=== PATIENT | female | born 1940 | race Caucasian/White ===

== ENCOUNTER 2018-03-15 19:49 | Emergency (ER) | payer MEDICARE, BC ==
--- NOTE | 2018-03-15 20:33 | EDM.PDOC ---
ED HPI GENERAL MEDICAL PROBLEM - General Chief Complaint: General Stated Complaint: MED VIA [facility] Time Seen by Provider: 03/15/18 20:17 Source of Information: Reports: Patient, Family, RN Notes Reviewed History Limitations: Reports: No Limitations - History of Present Illness INITIAL COMMENTS - FREE TEXT/NARRATIVE: 77-year-old female presents to the emergency department today with complaint of red swollen leg. She is postop day 10 coronary artery bypass grafting done in [facility] over the last couple days she's noticed increased redness swelling and pain in her left leg where a graft was taken from. She denies any shortness of breath or chest pain feels her breathing has improved, no fevers Left Leg Pain Score (Numeric/FACES): 2 - Related Data Allergies Allergy/AdvReac Type Severity Reaction Status Date / Time morphine Allergy Severe Anaphylactic Verified 03/15/18 20:01 Shock ciprofloxacin Allergy Confusion Verified 03/15/18 20:01 Sulfa (Sulfonamide Allergy Itching Verified 03/15/18 20:01 Antibiotics) Home Meds: Home Meds Furosemide [Lasix] 40 mg PO BID 05/09/15 [History] Acetaminophen [Acetaminophen Extra Strength] 1,000 mg PO TID PRN 03/15/18 [ History] Amiodarone HCl [Pacerone] 200 mg PO BID 03/15/18 [History] Apixaban [Eliquis] 5 mg PO BID 03/15/18 [History] Aspirin [Halfprin] 81 mg PO DAILY 03/15/18 [History] Carvedilol 12.5 mg PO BID 03/15/18 [History] Insulin Glarg,Human.Rec.Analog [Lantus Solostar] 15 units SQ DAILY 03/15/18 [ History] Lisinopril 2.5 mg PO DAILY 03/15/18 [History] Pantoprazole Sodium [Protonix] 20 mg PO DAILY 03/15/18 [History] Potassium Chloride 2 tab PO BID 03/15/18 [History] Sennosides/Docusate Sodium [Senna-Time S Tablet] 1 tab PO BID 03/15/18 [History] atorvaSTATin Calcium [Atorvastatin Calcium] 40 mg PO DAILY 03/15/18 [History] traMADol [Ultram] 50 mg PO Q4H PRN 03/15/18 [History] Past Medical History HEENT History: Reports: Cataract, Hard of Hearing Cardiovascular History: Reports: Aneurysm, Bypass, CAD, High Cholesterol, Hypertension Respiratory History: Reports: Sleep Apnea Gastrointestinal History: Reports: Diverticulosis, GERD, PUD Other Gastrointestinal History: ulcers Genitourinary History: Reports: Urinary Incontinence, UTI, Recurrent SCREENING SPECIALIST History: Reports: Other (See Below) Other SCREENING SPECIALIST History: uterine cancer Musculoskeletal History: Reports: Arthritis, Back Pain, Chronic Other Musculoskeletal History: back arthritis Neurological History: Reports: CVA, Neuropathy, Diabetic, Other (See Below) Other Neuro History: left side weakness Endocrine/Metabolic History: Reports: Diabetes, Type II, Obesity/BMI 30+ Hematologic History: Reports: Anticoagulation Therapy Oncologic (Cancer) History: Reports: Uterine Dermatologic History: Reports: Eczema - Infectious Disease History Infectious Disease History: Reports: C-Difficile, Chicken Pox, Measles, MRSA, Mumps, Shingles, Other (See Below) Other Infectious Disease History: MRSA in nasal swab - Past Surgical History HEENT Surgical History: Reports: Cataract Surgery Cardiovascular Surgical History: Reports: Aneurysm, Coronary Artery Bypass, Coronary Artery Stent Other Cardiovascular Surgeries/Procedures: stent 10 years GI Surgical History: Reports: Cholecystectomy, Colonoscopy, EGD Female Surgical History: Reports: Hysterectomy, Salpingo-Oophorectomy Other Oncologic Surgeries/Procedures: hyst Social & Family History - Tobacco Use Smoking Status *Q: Never Smoker - Caffeine Use Caffeine Use: Reports: Coffee - Recreational Drug Use Recreational Drug Use: No ED ROS GENERAL - Review of Systems Review Of Systems: See Below Constitutional: Reports: No Symptoms Respiratory: Reports: No Symptoms Cardiovascular: Reports: No Symptoms GI/Abdominal: Reports: No Symptoms : Reports: No Symptoms Skin: Reports: Pallor, Rash, Erythema, Wound ED EXAM, GENERAL - Physical Exam Exam: See Below Free Text/Narrative:: Examination of the left leg surgical wounds clean dry and intact there is an erythematous margin that encompasses 40% of the thigh it is warm to the touch and tender to the touch Exam Limited By: No Limitations General Appearance: Alert, WD/WN, No Apparent Distress Respiratory/Chest: No Respiratory Distress, Lungs Clear, Normal Breath Sounds, No Accessory Muscle Use Cardiovascular: Regular Rate, Rhythm, No Murmur Course - Vital Signs Last Recorded V/S: Last Vital Signs Temp 99.5 F 03/15/18 20:05 Pulse 80 03/15/18 20:05 Resp 16 03/15/18 20:05 BP 119/52 L 03/15/18 20:05 Pulse Ox 96 03/15/18 20:05 - Orders/Labs/Meds Labs: Laboratory Tests 03/15/18 03/15/18 03/15/18 Range/Units 20:21 20:21 20:21 WBC 24.3 H (4.5-11.0) K/uL RBC 3.22 L (3.30-5.50) M/uL Hgb 9.8 L (12.0-15.0) g/dL Hct 29.9 L (36.0-48.0) % MCV 93 (80-98) fL MCH 30 (27-31) pg MCHC 33 (32-36) % Plt Count 278 (150-400) K/uL Neut % (Auto) 81 H (36-66) % Lymph % (Auto) 14 L (24-44) % Mot[place] % (Auto) 5 (2-6) % Eos % (Auto) 1 L (2-4) % Baso % (Auto) 0 (0-1) % Sodium (140-148) mmol/L Potassium (3.6-5.2) mmol/L Chloride (100-108) mmol/L Carbon Dioxide (21-32) mmol/L Anion Gap (5.0-14.0) mmol/L BUN (7-18) mg/dL Creatinine (0.6-1.0) mg/dL Est Cr Clr Drug Dosing Estimated GFR (MDRD) (>60) Glucose (74-106) mg/dL Lactic Acid 1.1 (0.4-2.0) mmol/L Calcium (8.5-10.1) mg/dL C-Reactive Protein 8.77 H (0.0-0.3) mg/dL 03/15/18 Range/Units 20:21 WBC (4.5-11.0) K/uL RBC (3.30-5.50) M/uL Hgb (12.0-15.0) g/dL Hct (36.0-48.0) % MCV (80-98) fL MCH (27-31) pg MCHC (32-36) % Plt Count (150-400) K/uL Neut % (Auto) (36-66) % Lymph % (Auto) (24-44) % [place] % (Auto) (2-6) % Eos % (Auto) (2-4) % Baso % (Auto) (0-1) % Sodium 133 L (140-148) mmol/L Potassium 4.6 (3.6-5.2) mmol/L Chloride 98 L (100-108) mmol/L Carbon Dioxide 25 (21-32) mmol/L Anion Gap 14.6 H (5.0-14.0) mmol/L BUN 22 H (7-18) mg/dL Creatinine 2.0 H (0.6-1.0) mg/dL Est Cr Clr Drug Dosing TNP Estimated GFR (MDRD) 24 L (>60) Glucose 238 H (74-106) mg/dL Lactic Acid (0.4-2.0) mmol/L Calcium 9.2 (8.5-10.1) mg/dL C-Reactive Protein (0.0-0.3) mg/dL Departure - Departure Time of Disposition: 21:21 Disposition: DC/Tfer to [facility] Condition: Fair Clinical Impression: Wound cellulitis - Discharge Information Referrals: PCP,None [Primary Care Provider] - Forms: ED Department Discharge Additional Instructions: Take full course of antibiotics, please follow-up with the prison provider in the next 3-5 days for reevaluation call return to the emergency department worsening of symptoms - Assessment/Plan Plan: Assessment Acuity = acute Site and laterality = wound cellulitis complicated with the patient postop CABG and history of MRSA Etiology = suspicious for bacterial cause Manifestations = none Location of injury = Home Lab values = WBC elevated at 24.3 consistent leukocytosis, hemoglobin low 9.8 consistent normochromic anemia creatinine elevated 2.0 consistent chronic renal failure stage GIV lactic acid normal at 1.1 CRP elevated at 8.77 Plan Prescription written for clindamycin 300 mg 4 times a day 10 days however follow-up with the prison provider in 3-5 days for reevaluation This note was dictated using [employer] recognition software please call with any questions on syntax or grammar.
[2018-03-15 23:19] VITALS: BP 140/54
== END 2018-03-15 21:47 ==
LOC: JP.ED 19:49
DX: I97.89 Other postprocedural complications and disorders of the circulatory system, not elsewhere classified (principal); L03.116 Cellulitis of left lower limb; I10 Essential (primary) hypertension; E78.00 Pure hypercholesterolemia, unspecified; K21.9 Gastro-esophageal reflux disease without esophagitis; E11.9 Type 2 diabetes mellitus without complications; Z79.01 Long term (current) use of anticoagulants; Z79.899 Other long term (current) drug therapy; Z79.82 Long term (current) use of aspirin; Z79.4 Long term (current) use of insulin; Z88.1 Allergy status to other antibiotic agents; Z88.5 Allergy status to narcotic agent; Z88.2 Allergy status to sulfonamides
CPT/HCPCS: 36415; 80048; 83605; 85025; 86140; 99285

== ENCOUNTER 2019-01-12 17:12 | Emergency (ER) | payer BC, MEDICARE ==
[2019-01-12] MEDS ORDERED: Cyclobenzaprine 10 MG Tab PO ONE (18:26)
[2019-01-12] MEDS ORDERED: Ketorolac 30 MG/ML SDV IM ONE (18:26)
--- NOTE | 2019-01-12 18:29 | EDM.PDOC ---
ED HPI GENERAL MEDICAL PROBLEM - General Chief Complaint: Back Pain or Injury Time Seen by Provider: 01/12/19 18:22 Source of Information: Reports: Patient, RN Notes Reviewed History Limitations: Reports: No Limitations - History of Present Illness INITIAL COMMENTS - FREE TEXT/NARRATIVE: 78-year-old female presents to emergency department today complaint of low back pain predominantly on the left she states she did do some moving of bags yesterday had no back problems yesterday pain is quite severe today with pain shooting down into her legs no loss of bowel or bladder fevers, family is concerned about his dvt lower extremities only Left Lower Pain Score (Numeric/FACES): 3 - Related Data Allergies Allergy/AdvReac Type Severity Reaction Status Date / Time morphine Allergy Severe Anaphylactic Verified 01/12/19 17:57 Shock ciprofloxacin Allergy Confusion Verified 01/12/19 17:57 Sulfa (Sulfonamide Allergy Itching Verified 01/12/19 17:57 Antibiotics) Home Meds: Home Meds Furosemide [Lasix] 40 mg PO BID 05/09/15 [History] Acetaminophen [Acetaminophen Extra Strength] 1,000 mg PO TID PRN 03/15/18 [ History] Aspirin [Halfprin] 81 mg PO DAILY 03/15/18 [History] Carvedilol 12.5 mg PO BID 03/15/18 [History] Pantoprazole Sodium [Protonix] 20 mg PO DAILY 03/15/18 [History] Lisinopril 10 mg PO BID 01/12/19 [History] Potassium Chloride 10 meq PO BID 01/12/19 [History] metFORMIN HCl [Metformin HCl] 850 mg PO BID 01/12/19 [History] Past Medical History HEENT History: Reports: Cataract, Hard of Hearing Cardiovascular History: Reports: Aneurysm, Bypass, CAD, High Cholesterol, Hypertension Respiratory History: Reports: Sleep Apnea Gastrointestinal History: Reports: Diverticulosis, GERD, PUD Other Gastrointestinal History: ulcers Genitourinary History: Reports: Urinary Incontinence, UTI, Recurrent SPECIALIZED DEVELOPER History: Reports: Other (See Below) Other SPECIALIZED DEVELOPER History: uterine cancer Musculoskeletal History: Reports: Arthritis, Back Pain, Chronic Other Musculoskeletal History: back arthritis Neurological History: Reports: CVA, Neuropathy, Diabetic, Other (See Below) Other Neuro History: left side weakness Endocrine/Metabolic History: Reports: Diabetes, Type II, Obesity/BMI 30+ Hematologic History: Reports: Anticoagulation Therapy Oncologic (Cancer) History: Reports: Uterine Dermatologic History: Reports: Eczema - Infectious Disease History Infectious Disease History: Reports: C-Difficile, Chicken Pox, Measles, MRSA, Mumps, Shingles, Other (See Below) Other Infectious Disease History: MRSA in nasal swab - Past Surgical History HEENT Surgical History: Reports: Cataract Surgery Cardiovascular Surgical History: Reports: Aneurysm, Coronary Artery Bypass, Coronary Artery Stent Other Cardiovascular Surgeries/Procedures: stent 10 years GI Surgical History: Reports: Cholecystectomy, Colonoscopy, EGD Female Surgical History: Reports: Hysterectomy, Salpingo-Oophorectomy Other Oncologic Surgeries/Procedures: hyst Social & Family History - Tobacco Use Smoking Status *Q: Never Smoker - Caffeine Use Caffeine Use: Reports: Coffee - Recreational Drug Use Recreational Drug Use: No ED ROS GENERAL - Review of Systems Review Of Systems: See Below Constitutional: Reports: No Symptoms GI/Abdominal: Reports: No Symptoms Musculoskeletal: Reports: Neck Pain Neurological: Reports: Tingling ED EXAM,LOWER BACK PAIN/INJURY - Physical Exam Exam: See Below Exam Limited By: No Limitations General Appearance: Alert, WD/WN, No Apparent Distress Respiratory/Chest: No Respiratory Distress Back Exam: Normal Inspection, Decreased Range of Motion, Muscle Spasm, Paraspinal Tenderness. No: CVA Tenderness (R), CVA Tenderness (L), Vertebral Tenderness Neurological: No: Straight Leg Raise (L), Straight Leg Raise (R) Course - Vital Signs Last Recorded V/S: Last Vital Signs Temp 100.0 F 01/12/19 18:11 Pulse 94 01/12/19 18:37 Resp 16 01/12/19 18:37 BP 176/71 H 01/12/19 18:37 Pulse Ox 95 01/12/19 18:37 - Orders/Labs/Meds Labs: Laboratory Tests 01/12/19 01/12/19 Range/Units 18:37 18:37 D-Dimer, Quantitative 211 (0.0-400.0) ng/mL Sodium 136 L (140-148) mmol/L Potassium 4.4 (3.6-5.2) mmol/L Chloride 101 (100-108) mmol/L Carbon Dioxide 27 (21-32) mmol/L Anion Gap 12.4 (5.0-14.0) mmol/L BUN 39 H D (7-18) mg/dL Creatinine 1.7 H (0.6-1.0) mg/dL Est Cr Clr Drug Dosing 20.87 mL/min Estimated GFR (MDRD) 29 L (>60) Glucose 200 H (74-106) mg/dL Calcium 9.4 (8.5-10.1) mg/dL Meds: Medications Discontinued Medications Generic Name Dose Route Start Last Admin Trade Name Dee PRN Reason Stop Dose Admin Cyclobenzaprine HCl 10 mg 01/12/19 18:26 01/12/19 18:32 Flexeril PO 01/12/19 18:27 10 mg ONETIME ONE Administration Ketorolac Tromethamine 30 mg 01/12/19 18:26 01/12/19 18:32 Toradol IM 01/12/19 18:27 30 mg ONETIME ONE Administration Departure - Departure Time of Disposition: 19:56 Disposition: Home, Self-Care 01 Condition: Fair Clinical Impression: Low back pain Qualifiers: Chronicity: acute Back pain laterality: left Sciatica presence: without sciatica Qualified Code(s): M54.5 - Low back pain - Discharge Information Referrals: Eugene Cordova MD [Primary Care Provider] - Forms: ED Department Discharge Additional Instructions: Use the Ultram as needed for pain control, Please followup with your primary care provider in 3-5 days if not better, please call return to the emergency department with worsening of symptoms. - Assessment/Plan Plan: Assessment Acuity = acute Site and laterality = low back pain left side Etiology = secondary lifting injury Manifestations = none Location of injury = Home Lab values = d-dimer was negative, creatinine elevated 1.7 consistent chronic renal failure state G4 Plan She good relief with Toradol and Flexeril combination, plan is discharge home with tramadol 50 mg by mouth every 6 hours when necessary total #15 follow-up primary care in 3-5 days if not better This note was dictated using [employer] voice recognition software please call with any questions on syntax or grammar.
[2019-01-12 18:37] VITALS: BP 176/71
== END 2019-01-12 20:27 | disposition home or self-care (01) ==
LOC: JP.ED 17:12
DX: M54.5 Low back pain (principal); I25.10 Atherosclerotic heart disease of native coronary artery without angina pectoris; E78.00 Pure hypercholesterolemia, unspecified; Z79.01 Long term (current) use of anticoagulants; E66.9 Obesity, unspecified; E11.40 Type 2 diabetes mellitus with diabetic neuropathy, unspecified; Z95.1 Presence of aortocoronary bypass graft; Z88.8 Allergy status to other drugs, medicaments and biological substances; Z88.2 Allergy status to sulfonamides; Z88.1 Allergy status to other antibiotic agents; Z79.899 Other long term (current) drug therapy; Z79.82 Long term (current) use of aspirin; Z79.84 Long term (current) use of oral hypoglycemic drugs; Z68.38 Body mass index [BMI] 38.0-38.9, adult
CPT/HCPCS: 36415; 80048; 85379; 96372; 99283; A9270; J1885

== ENCOUNTER 2019-11-21 15:33 | Emergency (ER) | payer BC, MEDICARE, OTHER ==
[2019-11-21 15:49] VITALS: PULSE 72
[2019-11-21 15:55] VITALS: BP 166/71
--- NOTE | 2019-11-21 16:56 | EDM.PDOC ---
ED HPI GENERAL MEDICAL PROBLEM - General Chief Complaint: Skin Complaint Stated Complaint: BACKACHE Time Seen by Provider: 11/21/19 16:56 Source of Information: Reports: Patient History Limitations: Reports: No Limitations - History of Present Illness INITIAL COMMENTS - FREE TEXT/NARRATIVE: pt arrived with a feeling of firmness and tenderness at the waist level on the left side. She has been busy helping her daughter move. Onset: Today, Other (pt noted the swelling today. ) Duration: Day(s): Location: Reports: Back Associated Symptoms: Reports: No Other Symptoms - Related Data Allergies Allergy/AdvReac Type Severity Reaction Status Date / Time morphine Allergy Severe Anaphylactic Verified 11/21/19 16:16 Shock ciprofloxacin Allergy Confusion Verified 11/21/19 16:16 Sulfa (Sulfonamide Allergy Itching Verified 11/21/19 16:16 Antibiotics) Home Meds: Home Meds Furosemide [Lasix] 40 mg PO BID 05/09/15 [History] Aspirin [Halfprin] 81 mg PO DAILY 03/15/18 [History] Pantoprazole Sodium [Protonix] 20 mg PO DAILY 03/15/18 [History] carvediloL [Carvedilol] 12.5 mg PO BID 03/15/18 [History] Lisinopril 10 mg PO BID 01/12/19 [History] Potassium Chloride 10 meq PO BID 01/12/19 [History] metFORMIN HCl [Metformin HCl] 850 mg PO BID 01/12/19 [History] Past Medical History HEENT History: Reports: Cataract, Hard of Hearing Cardiovascular History: Reports: Aneurysm, Bypass, CAD, High Cholesterol, Hypertension Respiratory History: Reports: Sleep Apnea Gastrointestinal History: Reports: Diverticulosis, GERD, PUD Other Gastrointestinal History: ulcers Genitourinary History: Reports: Urinary Incontinence, UTI, Recurrent 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: Reports: Other (See Below) Other 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: uterine cancer Musculoskeletal History: Reports: Arthritis, Back Pain, Chronic Other Musculoskeletal History: back arthritis Neurological History: Reports: CVA, Neuropathy, Diabetic, Other (See Below) Other Neuro History: left side weakness Endocrine/Metabolic History: Reports: Diabetes, Type II, Obesity/BMI 30+ Hematologic History: Reports: Anticoagulation Therapy Oncologic (Cancer) History: Reports: Uterine Dermatologic History: Reports: Eczema - Infectious Disease History Infectious Disease History: Reports: C-Difficile, Chicken Pox, Measles, MRSA, Mumps, Shingles, Other (See Below) Other Infectious Disease History: MRSA in nasal swab - Past Surgical History HEENT Surgical History: Reports: Cataract Surgery Cardiovascular Surgical History: Reports: Aneurysm, Coronary Artery Bypass, Coronary Artery Stent Other Cardiovascular Surgeries/Procedures: stent 10 years GI Surgical History: Reports: Cholecystectomy, Colonoscopy, EGD Female Surgical History: Reports: Hysterectomy, Salpingo-Oophorectomy Other Oncologic Surgeries/Procedures: hyst Social & Family History - Tobacco Use Smoking Status *Q: Never Smoker - Caffeine Use Caffeine Use: Reports: Coffee ED ROS GENERAL - Review of Systems Review Of Systems: See Below Constitutional: Reports: No Symptoms HEENT: Reports: No Symptoms Respiratory: Reports: No Symptoms Cardiovascular: Reports: No Symptoms Endocrine: Reports: No Symptoms GI/Abdominal: Reports: No Symptoms : Reports: No Symptoms Musculoskeletal: Reports: Other (pain and firmness in the let cva area along the back ) ED EXAM, SKIN/RASH Exam: See Below Text/Narrative:: pt has tenderness in the left cva area she feels like this is new. Exam Limited By: No Limitations General Appearance: Alert, Anxious Back Exam: CVA Tenderness (L), Other (pt feels like there is a firmness and this is slightly tender,. She has been helping her daughter move. ) Extremities: Normal Inspection Neurological: Alert, Oriented, Normal Cognition Course - Vital Signs Last Recorded V/S: Last Vital Signs Temp 36.1 C 11/21/19 16:26 Pulse 72 11/21/19 16:26 Resp 16 11/21/19 16:26 BP 166/71 H 11/21/19 16:26 Pulse Ox 98 11/21/19 16:26 - Orders/Labs/Meds Orders: Active Orders 24 hr Category Date Time Status Thoracic Spine 3V [CR] Stat Exams 11/21/19 16:55 Taken CULTURE URINE [RM] Stat Lab 11/21/19 18:00 Received Labs: Laboratory Tests 11/21/19 Range/Units 17:46 Urine Color Yellow (YELLOW) Urine Appearance Slightly cloudy A (CLEAR) Urine pH 6.0 (5.0-8.0) Ur Specific [place] 1.025 (1.008-1.030) Urine Protein Negative (NEGATIVE) mg/dL Urine Glucose (UA) Negative (NEGATIVE) mg/dL Urine Ketones Negative (NEGATIVE) mg/dL Urine Occult Blood Negative (NEGATIVE) Urine Nitrite Negative (NEGATIVE) Urine Bilirubin Negative (NEGATIVE) Urine Urobilinogen 0.2 (0.2-1.0) EU/dL Ur Leukocyte Esterase Trace H (NEGATIVE) Urine RBC Not seen (0-5) Urine WBC 10-20 H (0-5) Ur Epithelial Cells Many Amorphous Sediment Rare Urine Bacteria Many Urine Mucus Not seen - Re-Assessments/Exams Free Text/Narrative Re-Assessment/Exam: 11/21/19 17:40 xrays reveal a curvature to the left, she is also kyphotic. Departure - Departure Time of Disposition: 17:37 Disposition: Home, Self-Care 01 Condition: Fair Clinical Impression: Lumbar paraspinal muscle spasm, UTI (urinary tract infection) - Discharge Information Referrals: Eugene Cordova MD [Primary Care Provider] - Forms: ED Department Discharge Care Plan Goals: moist warm packs to the area, tylenol or motrin for pain cipro 500mg bid for 1 week for uti. q Sepsis Event Note - Evaluation Sepsis Screening Result: No Definite Risk - Focused Exam Vital Signs: Vital Signs Temp Pulse Resp BP Pulse Ox 11/21/19 16:26 36.1 C 72 16 166/71 H 98 11/21/19 15:47 36.1 C 72 16 166/71 H 98 Date Exam was Performed: 11/21/19 Time Exam was Performed: 18:02 - My Orders Last 24 Hours: My Active Orders 11/21/19 16:55 Thoracic Spine 3V [CR] Stat 11/21/19 18:00 CULTURE URINE [RM] Stat - Assessment/Plan Last 24 Hours: My Active Orders 11/21/19 16:55 Thoracic Spine 3V [CR] Stat 11/21/19 18:00 CULTURE URINE [RM] Stat
--- NOTE | 2019-11-22 10:49 | CR ---
Thoracic Spine 3V CLINICAL HISTORY: Lower thoracic pain FINDINGS: Patient has a high flow dextroscoliosis of the mid and lower thoracic spine. The lower thoracic vertebral levels are very poorly seen on the lateral images. No obvious significant compression deformity is identified. There is degenerative disc change with osteophytosis. The pedicles are unremarkable. 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
== END 2019-11-21 18:19 | disposition home or self-care (01) ==
LOC: JP.ED 15:33
DX: M62.830 Muscle spasm of back (principal); N39.0 Urinary tract infection, site not specified; M19.90 Unspecified osteoarthritis, unspecified site; Z79.82 Long term (current) use of aspirin; Z79.899 Other long term (current) drug therapy; K21.9 Gastro-esophageal reflux disease without esophagitis; I25.10 Atherosclerotic heart disease of native coronary artery without angina pectoris; I10 Essential (primary) hypertension; E11.40 Type 2 diabetes mellitus with diabetic neuropathy, unspecified; Z86.73 Personal history of transient ischemic attack (TIA), and cerebral infarction without residual deficits; E66.9 Obesity, unspecified; Z88.5 Allergy status to narcotic agent; Z88.1 Allergy status to other antibiotic agents; Z88.2 Allergy status to sulfonamides; Z68.38 Body mass index [BMI] 38.0-38.9, adult
CPT/HCPCS: 72072; 72072-26; 81001; 87086; 87088; 87186; 99283; 99283-25

== ENCOUNTER 2020-06-04 23:16 | Emergency (ER) | payer MEDICARE ==
[2020-06-04 23:59] VITALS: BP 159/51; PULSE 74
--- NOTE | 2020-06-05 00:30 | EDM.PDOC ---
ED HPI GENERAL MEDICAL PROBLEM - General Chief Complaint: Gastrointestinal Problem Stated Complaint: DIVERTICULITIS Time Seen by Provider: 06/05/20 00:24 Source of Information: Reports: Patient, RN Notes Reviewed History Limitations: Reports: No Limitations - History of Present Illness INITIAL COMMENTS - FREE TEXT/NARRATIVE: 80-year-old female presents emergency department a complaint of abdominal pain, she states pain is predominantly left lower quadrant she has had diverticular disease in the past she states this feels very similar to a flareup. Pain initiated about 3:00 this afternoon rated 5 out of 10 she still passing gas no fevers no nausea or vomiting abd pain Pain Score (Numeric/FACES): 5 - Related Data Allergies Allergy/AdvReac Type Severity Reaction Status Date / Time morphine Allergy Severe Anaphylactic Verified 06/04/20 23:54 Shock ciprofloxacin Allergy Confusion Verified 06/04/20 23:54 Sulfa (Sulfonamide Allergy Itching Verified 06/04/20 23:54 Antibiotics) Home Meds: Home Meds Furosemide [Lasix] 40 mg PO DAILY 05/09/15 [History] Aspirin [Halfprin] 81 mg PO DAILY 03/15/18 [History] Pantoprazole Sodium [Protonix] 20 mg PO DAILY 03/15/18 [History] carvediloL [Carvedilol] 12.5 mg PO BID 03/15/18 [History] Lisinopril 10 mg PO BID 01/12/19 [History] Potassium Chloride 10 meq PO BID 01/12/19 [History] metFORMIN HCl [Metformin HCl] 850 mg PO BID 01/12/19 [History] Latanoprost/Pf [Latanoprost 0.005% Eye Drop] 1 - 2 drop EYEBOTH BEDTIME 06/04/20 [History] Past Medical History HEENT History: Reports: Cataract, Glaucoma, Hard of Hearing Cardiovascular History: Reports: Aneurysm, Bypass, CAD, High Cholesterol, Hypertension Respiratory History: Reports: Sleep Apnea Gastrointestinal History: Reports: Diverticulosis, GERD, PUD Other Gastrointestinal History: ulcers Genitourinary History: Reports: Urinary Incontinence, UTI, Recurrent 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 (See Below) Other ASSOCIATE CIVIL ENGINEER History: uterine cancer Musculoskeletal History: Reports: Arthritis, Back Pain, Chronic Other Musculoskeletal History: back arthritis Neurological History: Reports: CVA, Neuropathy, Diabetic, Other (See Below) Other Neuro History: left side weakness Psychiatric History: Reports: Anxiety Endocrine/Metabolic History: Reports: Diabetes, Type II, Obesity/BMI 30+ Hematologic History: Reports: Anticoagulation Therapy Oncologic (Cancer) History: Reports: Uterine Dermatologic History: Reports: Eczema - Infectious Disease History Infectious Disease History: Reports: C-Difficile, Chicken Pox, Measles, MRSA, Mumps, Shingles, Other (See Below) Other Infectious Disease History: MRSA in nasal swab - Past Surgical History HEENT Surgical History: Reports: Cataract Surgery Cardiovascular Surgical History: Reports: Aneurysm, Coronary Artery Bypass, Coronary Artery Stent Other Cardiovascular Surgeries/Procedures: stent 10 years GI Surgical History: Reports: Cholecystectomy, Colonoscopy, EGD Female Surgical History: Reports: Hysterectomy, Salpingo-Oophorectomy Oncologic Surgical History: Reports: Other (See Below) Other Oncologic Surgeries/Procedures: hyst Social & Family History - Tobacco Use Tobacco Use Status *Q: Never Tobacco User - Caffeine Use Caffeine Use: Reports: Coffee - Recreational Drug Use Recreational Drug Use: No ED ROS GENERAL - Review of Systems Review Of Systems: See Below Constitutional: Reports: No Symptoms HEENT: Reports: No Symptoms Respiratory: Reports: No Symptoms Cardiovascular: Reports: No Symptoms GI/Abdominal: Reports: Abdominal Pain, Flatus. Denies: Nausea, Vomiting ED EXAM, GI/ABD - Physical Exam Exam: See Below Exam Limited By: No Limitations General Appearance: Alert, WD/WN, No Apparent Distress Respiratory/Chest: No Respiratory Distress, Lungs Clear, Normal Breath Sounds, No Accessory Muscle Use, Chest Non-Tender Cardiovascular: Regular Rate, Rhythm, No Murmur GI/Abdominal Exam: Normal Bowel Sounds, Soft, Tender (Tender left lower quadrant) Course - Vital Signs Last Recorded V/S: Last Vital Signs Temp 97.0 F 06/04/20 23:59 Pulse 74 06/04/20 23:59 Resp 16 06/04/20 23:59 BP 159/51 H 06/04/20 23:59 Pulse Ox 96 06/04/20 23:59 - Orders/Labs/Meds Labs: Laboratory Tests 06/05/20 06/05/20 06/05/20 Range/Units 00:40 00:40 00:40 WBC 10.9 (4.5-11.0) K/uL RBC 4.20 (3.30-5.50) M/uL Hgb 13.0 D (12.0-15.0) g/dL Hct 38.7 (36.0-48.0) % MCV 92 (80-98) fL MCH 31 (27-31) pg MCHC 34 (32-36) % Plt Count 143 L (150-400) K/uL Neut % (Auto) 46 (36-66) % Lymph % (Auto) 44 (24-44) % [place] % (Auto) 9 H (2-6) % Eos % (Auto) 2 (2-4) % Baso % (Auto) 0 (0-1) % Sodium 137 L (140-148) mmol/L Potassium 4.2 (3.6-5.2) mmol/L Chloride 102 (100-108) mmol/L Carbon Dioxide 26 (21-32) mmol/L Anion Gap 13.2 (5.0-14.0) mmol/L BUN 24 H (7-18) mg/dL Creatinine 1.5 H (0.6-1.0) mg/dL Est Cr Clr Drug Dosing 22.87 mL/min Estimated GFR (MDRD) 33 L (>60) Glucose 194 H (74-106) mg/dL Lactic Acid 0.8 (0.4-2.0) mmol/L Calcium 8.9 (8.5-10.1) mg/dL Total Bilirubin 0.4 (0.2-1.0) mg/dL AST 44 H (15-37) U/L ALT 75 (12-78) U/L Alkaline Phosphatase 72 (46-116) U/L Total Protein 6.5 (6.4-8.2) g/dL Albumin 3.8 (3.4-5.0) g/dL Globulin 2.7 (2.3-3.5) g/dL Albumin/Globulin Ratio 1.4 (1.2-2.2) Departure - Departure Time of Disposition: 01:30 Disposition: Home, Self-Care 01 Condition: Fair Clinical Impression: Diverticulitis - Discharge Information Instructions: Diverticulitis, [id number] Referrals: Eugene Cordova MD [Primary Care Provider] - Forms: ED Department Discharge Additional Instructions: Take full course of antibiotics, please followup with your primary care provider in 3-5 days if not better, please call return to the emergency department with worsening of symptoms. Sepsis Event Note (ED) - Evaluation Sepsis Screening Result: No Definite Risk - Focused Exam Vital Signs: Vital Signs Temp Pulse Resp BP Pulse Ox 06/04/20 23:59 97.0 F 74 16 159/51 H 96 06/04/20 23:56 97.0 F 74 16 159/51 H 96 - Assessment/Plan Plan: Assessment Acuity = acute Site and laterality = probable diverticulitis Etiology = diverticular disease Manifestations = abdominal pain Location of injury = Home Lab values = CBC unremarkable creatinine elevated 1.5 consistent with chronic renal failure stage G3 B lactic acid within normal limits Plan Elected to treat empirically Augmentin 875 p.o. twice daily x10 days follow-up primary care 3 to 5 days if no improvement This note was dictated using [employer] voice recognition software please call with any questions on syntax or grammar.
== END 2020-06-05 01:37 | disposition home or self-care (01) ==
LOC: JP.ED 23:16
DX: K57.92 Diverticulitis of intestine, part unspecified, without perforation or abscess without bleeding (principal); I25.10 Atherosclerotic heart disease of native coronary artery without angina pectoris; I10 Essential (primary) hypertension; K21.9 Gastro-esophageal reflux disease without esophagitis; M19.90 Unspecified osteoarthritis, unspecified site; E11.40 Type 2 diabetes mellitus with diabetic neuropathy, unspecified; Z86.73 Personal history of transient ischemic attack (TIA), and cerebral infarction without residual deficits; E66.9 Obesity, unspecified; Z68.41 Body mass index [BMI] 40.0-44.9, adult; Z95.1 Presence of aortocoronary bypass graft; Z79.82 Long term (current) use of aspirin; Z79.84 Long term (current) use of oral hypoglycemic drugs
CPT/HCPCS: 36415; 80053; 83605; 85025; 99284

== ENCOUNTER 2021-01-15 12:09 | Emergency (ER) | payer MEDICARE ==
--- NOTE | 2021-01-15 12:42 | EDM.PDOC ---
ED HPI GENERAL MEDICAL PROBLEM - General Chief Complaint: Lower Extremity Injury/Pain Stated Complaint: SCIATIC PAIN Time Seen by Provider: 01/15/21 12:41 Source of Information: Reports: Patient, RN Notes Reviewed History Limitations: Reports: No Limitations - History of Present Illness INITIAL COMMENTS - FREE TEXT/NARRATIVE: Jessica presents today for complaints of low back pain radiating to the left lateral leg and left calf. She states the pain started today when she got out of bed. She has tramadol that was recently prescribed to her. She took one tramadol 50mg PO this morning when her pain was 10/10. Her pain now is 4/10. She states it feels tight and sharp. She reports she has not tried any OTC medications or treatments for her pain. Jessica reports recent x-rays per her primary provider Dr. Noemi Roberts. She denies any loss of bladder and bowel sensation, recent injury, fall, trauma, fever, chills, nausea, vomiting, change in bowel/bladder or bloody urine. Left Buttock Pain Score (Numeric/FACES): 4 - Related Data Allergies Allergy/AdvReac Type Severity Reaction Status Date / Time morphine Allergy Severe Anaphylactic Verified 01/15/21 12:11 Shock ciprofloxacin Allergy Confusion Verified 01/15/21 12:11 Sulfa (Sulfonamide Allergy Itching Verified 01/15/21 12:11 Antibiotics) Home Meds: Home Meds Furosemide [Lasix] 40 mg PO DAILY 05/09/15 [History] Aspirin [Halfprin] 81 mg PO DAILY 03/15/18 [History] Pantoprazole Sodium [Protonix] 20 mg PO DAILY 03/15/18 [History] carvediloL [Carvedilol] 12.5 mg PO BID 03/15/18 [History] Lisinopril 10 mg PO BID 01/12/19 [History] Potassium Chloride 10 meq PO BID 01/12/19 [History] metFORMIN HCl [Metformin HCl] 850 mg PO BID 01/12/19 [History] Latanoprost/Pf [Latanoprost 0.005% Eye Drop] 1 - 2 drop EYEBOTH BEDTIME 06/04/20 [History] Past Medical History HEENT History: Reports: Cataract, Glaucoma, Hard of Hearing Cardiovascular History: Reports: Aneurysm, Bypass, CAD, High Cholesterol, Hypertension Respiratory History: Reports: Sleep Apnea Gastrointestinal History: Reports: Diverticulosis, GERD, PUD Other Gastrointestinal History: ulcers Genitourinary History: Reports: Urinary Incontinence, UTI, Recurrent 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 (See Below) 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 History: uterine cancer Musculoskeletal History: Reports: Arthritis, Back Pain, Chronic Other Musculoskeletal History: back arthritis Neurological History: Reports: CVA, Neuropathy, Diabetic, Other (See Below) Other Neuro History: left side weakness Psychiatric History: Reports: Anxiety Endocrine/Metabolic History: Reports: Diabetes, Type II, Obesity/BMI 30+ Hematologic History: Reports: Anticoagulation Therapy Oncologic (Cancer) History: Reports: Uterine Dermatologic History: Reports: Eczema - Infectious Disease History Infectious Disease History: Reports: C-Difficile, Chicken Pox, Measles, MRSA, Mumps, Shingles, Other (See Below) Other Infectious Disease History: MRSA in nasal swab - Past Surgical History HEENT Surgical History: Reports: Cataract Surgery Cardiovascular Surgical History: Reports: Aneurysm, Coronary Artery Bypass, Co ronary Artery Stent Other Cardiovascular Surgeries/Procedures: stent 10 years GI Surgical History: Reports: Cholecystectomy, Colonoscopy, EGD Female Surgical History: Reports: Hysterectomy, Salpingo-Oophorectomy Oncologic Surgical History: Reports: Other (See Below) Other Oncologic Surgeries/Procedures: hyst Social & Family History - Tobacco Use Tobacco Use Status *Q: Never Tobacco User Second Hand Smoke Exposure: No - Caffeine Use Caffeine Use: Reports: Coffee, Tea - Recreational Drug Use Recreational Drug Use: No Review of Systems - Review of Systems Review Of Systems: See Below Constitutional: Reports: Other (low back pain radiating to the left lateral leg and calf. ) Eyes: Reports: No Symptoms Ears: Reports: No Symptoms Nose: Reports: No Symptoms Mouth/Throat: Reports: No Symptoms Respiratory: Reports: No Symptoms Cardiovascular: Reports: No Symptoms GI/Abdominal: Reports: No Symptoms Genitourinary: Reports: No Symptoms Musculoskeletal: Reports: Muscle Pain, Other (low back pain radiating to left leg) Skin: Reports: No Symptoms Neurological: Reports: No Symptoms Psychiatric: Reports: No Symptoms ED EXAM, GENERAL - Physical Exam Exam: See Below Exam Limited By: No Limitations General Appearance: Alert, WD/WN, Mild Distress Eye Exam: Bilateral Eye: Normal Inspection, PERRL Ears: Normal External Exam, Normal Canal, Hearing Grossly Normal, Normal TMs Nose: Normal Inspection, Normal Mucosa, No Blood Throat/Mouth: Normal Inspection, Normal Lips, Normal Gums, Normal Oropharynx, Normal Voice, No Airway Compromise Head: Atraumatic, Normocephalic Neck: Normal Inspection, Supple, Non-Tender, Full Range of Motion. No: Lymphad enopathy (R), Lymphadenopathy (L) Respiratory/Chest: No Respiratory Distress, Lungs Clear, Normal Breath Sounds, No Accessory Muscle Use, Chest Non-Tender Cardiovascular: Normal Peripheral Pulses, Regular Rate, Rhythm, No Edema, No Gallop, No Murmur, No Rub Peripheral Pulses: 3+: Radial (L), Radial (R), Dorsalis Pedis (L), Dorsalis Pedis (R) Back Exam: CVA Tenderness (L), Decreased Range of Motion, Muscle Spasm (left paraspinal muscle spasm, firm to touch, tender to touch), Paraspinal Tenderness, Other (Negative bilateral leg raises). No: CVA Tenderness (R), Vertebral Tenderness Extremities: Normal Inspection, Normal Range of Motion, Non-Tender, No Pedal Edema, Normal Capillary Refill Neurological: Alert, Oriented, CN II-XII Intact, Normal Cognition, Normal Reflexes, Abnormal Gait (due to pain in low back and left leg) Psychiatric: Normal Affect, Normal Mood Skin Exam: Warm, Dry, Intact, Normal Color, No Rash Lymphatic: No Adenopathy Course - Vital Signs Last Recorded V/S: Last Vital Signs Temp 36.7 C 01/15/21 12:36 Pulse 71 01/15/21 12:49 Resp 16 01/15/21 12:49 BP 138/67 01/15/21 12:49 Pulse Ox 97 01/15/21 12:49 - Orders/Labs/Meds Orders: Active Orders 24 hr Category Date Time Status CULTURE URINE [RM] Stat Lab 01/15/21 15:28 Ordered Labs: Laboratory Tests 01/15/21 Range/Units 13:55 Urine Color Yellow (YELLOW) Urine Appearance Clear (CLEAR) Urine pH 5.5 (5.0-8.0) Ur Specific [place] 1.020 (1.008-1.030) Urine Protein Negative (NEGATIVE) mg/dL Urine Glucose (UA) Negative (NEGATIVE) mg/dL Urine Ketones Negative (NEGATIVE) mg/dL Urine Occult Blood Negative (NEGATIVE) Urine Nitrite Positive H (NEGATIVE) Urine Bilirubin Negative (NEGATIVE) Urine Urobilinogen 0.2 (0.2-1.0) EU/dL Ur Leukocyte Esterase Small H (NEGATIVE) Urine RBC Not seen (0-5) Urine WBC 10-20 H (0-5) Ur Epithelial Cells Few Amorphous Sediment Few Urine Bacteria Many Urine Mucus Not seen Reviewed UA with patient, UTI present. Urine culture ordered. Allergies to ciprofloxacin, bactrim. We will provide cephalexin. Pain 2/10. Jessica reports she did not take her blood pressure medications or lasix today. Jessica denies headaches, change in vision, nausea, chest pain, difficulty with urination or other concerns. Meds: Medications Discontinued Medications Generic Name Dose Route Start Last Admin Trade Name Freq PRN Reason Stop Dose Admin Baclofen 10 mg 01/15/21 13:04 01/15/21 13:12 Baclofen 10 Mg Tab PO 01/15/21 13:05 10 mg ONETIME ONE Administration Cephalexin 1,000 mg 01/15/21 15:10 01/15/21 15:16 Cephalexin 250 Mg Cap PO 01/15/21 15:11 1,000 mg ONETIME ONE Administration Ketorolac Tromethamine 30 mg 01/15/21 13:04 01/15/21 13:13 Ketorolac 30 Mg/Ml Sdv IM 01/15/21 13:05 30 mg ONETIME ONE Administration - Re-Assessments/Exams Free Text/Narrative Re-Assessment/Exam: 01/15/21 14:00 Patient reports her pain is improving. Jessica up to the bathroom with stand by assistance, ambulated without difficulty. UA obtained. 01/15/21 15:05 Patient lab work reviewed with her. Jessica reports she feels like she had the start of a bladder infection about 3 to 5 days ago but did not think she had one. She reports her pain is now 2/10. She denies headache, change in vision, dizziness, chest pain, palpitations or other concerns at this time. She states she did not take her blood pressure medications today. BP rechecked 170/72. Offered blood pressure medication in emergency room, Jessica states she will take her regular medications when she gets home. Education provided on watching for signs of worsening infection, sepsis. Patient and her friend verbalize understanding. Education provided on taking medication as prescribed. Advised patient to follow up with primary provider in 3 to 7 days for a recheck. Patient in agreement with plan. Prescriptions for cephalexin and baclofen telephoned in to [facility]. Cephalexin 1000mg PO every 12 hours for 7 days, #28. Baclofen 10mg PO twice a day for muscle spasms PRN, #20. 01/15/21 15:40 Departure - Departure Time of Disposition: 15:12 Disposition: Home, Self-Care 01 Condition: Good Clinical Impression: Urinary tract infection, Lumbar paraspinal muscle spasm - Discharge Information *PRESCRIPTION DRUG MONITORING PROGRAM REVIEWED*: Not Applicable *COPY OF PRESCRIPTION DRUG MONITORING REPORT IN PATIENT SERVANDO: Not Applicable Instructions: Urinary Tract Infection, Adult, [id number] Referrals: Noemi Roberts DO [Primary Care Provider] - Forms: ED Department Discharge Additional Instructions: You have been evaluated and treated for low back pain and a urinary tract infection. Push water drinking to stay hydrated. Take cephalexin 1000mg twice per day for 7 days for bladder infection. Can take baclofen 10mg, one tablet twice a day as needed for muscle spasms of back. Follow up with primary provider in 3 to 7 days for a recheck. Return to the emergency room for any worsening, fever, chills, confusion or worsening of pain. Sepsis Event Note (ED) - Evaluation Sepsis Screening Result: No Definite Risk - Focused Exam Vital Signs: Vital Signs Temp Pulse Resp BP Pulse Ox 01/15/21 12:49 71 16 138/67 97 01/15/21 12:36 36.7 C 82 16 191/77 H 96 01/15/21 12:30 36.7 C 82 16 191/77 H 96 - My Orders Last 24 Hours: My Active Orders 01/15/21 15:28 CULTURE URINE [RM] Stat - Assessment/Plan Last 24 Hours: My Active Orders 01/15/21 15:28 CULTURE URINE [RM] Stat Assessment:: Urinary tract infection Lumbar paraspinal muscle spasm Plan: Patient evaluated and treated for low back pain and a urinary tract infection. Push water drinking to stay hydrated. Take cephalexin 1000mg twice per day for 7 days for bladder infection. Can take baclofen 10mg, one tablet twice a day as needed for muscle spasms of back. Follow up with primary provider in 3 to 7 days for a recheck. Return to the emergency room for any worsening, fever, chills, confusion or worsening of pain.
[2021-01-15 12:49] VITALS: BP 138/67; PULSE 71
[2021-01-15] MEDS ORDERED: Ketorolac 30 MG/ML SDV IM ONE (13:04)
[2021-01-15] MEDS ORDERED: Baclofen 10 MG Tab PO ONE (13:04)
[2021-01-15] MEDS ORDERED: Cephalexin 250 MG Cap PO ONE (15:10)
== END 2021-01-15 15:44 | disposition home or self-care (01) ==
LOC: JP.ED 12:09
DX: M62.830 Muscle spasm of back (principal); N39.0 Urinary tract infection, site not specified; I25.10 Atherosclerotic heart disease of native coronary artery without angina pectoris; I10 Essential (primary) hypertension; K21.9 Gastro-esophageal reflux disease without esophagitis; M19.90 Unspecified osteoarthritis, unspecified site; E11.40 Type 2 diabetes mellitus with diabetic neuropathy, unspecified; E66.9 Obesity, unspecified; Z68.41 Body mass index [BMI] 40.0-44.9, adult; Z79.01 Long term (current) use of anticoagulants; Z79.82 Long term (current) use of aspirin; Z79.899 Other long term (current) drug therapy; Z88.5 Allergy status to narcotic agent; Z88.1 Allergy status to other antibiotic agents; Z88.2 Allergy status to sulfonamides
CPT/HCPCS: 81001; 87086; 87088; 87186; 96372; 99283; A9270; J1885

== ENCOUNTER 2021-01-17 10:34 | Emergency (ER) | payer MEDICARE ==
[2021-01-17] MEDS ORDERED: Iopamidol 755 Mg/ML 100 ML Bottle IV SCH (11:00)
[2021-01-17] MEDS ORDERED: Sodium Chloride 0.9% 100 ML IV SCH (11:00)
--- NOTE | 2021-01-17 11:04 | EDM.PDOC ---
ED HPI GENERAL MEDICAL PROBLEM - General Chief Complaint: Neuro Symptoms/Deficits Stated Complaint: confused state-lower back pain Time Seen by Provider: 01/17/21 10:35 Source of Information: Reports: Patient History Limitations: Reports: Altered Mental Status - History of Present Illness INITIAL COMMENTS - FREE TEXT/NARRATIVE: This is an 80-year-old female with history of type 2 diabetes, hypertension, recent diagnosis of UTI currently on Keflex who presents with concerns of speech difficulty and confusion. History is primarily provided by family. She was reportedly acting a little strange last night when family went to visit her in her home, had chewed up some of her medication and left and laying out on the kitchen table. They were able to reorient her and get her to bed last night. When family went to check on her this morning, they found that the door to her home was open and her walker was out in front of the house. The patient was able to speak but being nonsensical and having difficulty putting together meaningful sentences. Patient is currently concerned of abdominal pain and neck pain. She is not able to provide much history or elaborate. Abdomen Pain Score (Numeric/FACES): 5 - Related Data Allergies Allergy/AdvReac Type Severity Reaction Status Date / Time morphine Allergy Severe Anaphylactic Verified 01/17/21 11:16 Shock ciprofloxacin Allergy Confusion Verified 01/17/21 11:16 Sulfa (Sulfonamide Allergy Itching Verified 01/17/21 11:16 Antibiotics) Home Meds: Home Meds Furosemide [Lasix] 40 mg PO DAILY 05/09/15 [History] Aspirin [Halfprin] 81 mg PO DAILY 03/15/18 [History] Pantoprazole Sodium [Protonix] 20 mg PO DAILY 03/15/18 [History] carvediloL [Carvedilol] 12.5 mg PO BID 03/15/18 [History] Lisinopril 10 mg PO BID 01/12/19 [History] Potassium Chloride 10 meq PO BID 01/12/19 [History] metFORMIN HCl [Metformin HCl] 850 mg PO BID 01/12/19 [History] Latanoprost/Pf [Latanoprost 0.005% Eye Drop] 1 - 2 drop EYEBOTH BEDTIME 06/04/20 [History] Past Medical History HEENT History: Reports: Cataract, Glaucoma, Hard of Hearing Cardiovascular History: Reports: Aneurysm, Bypass, CAD, High Cholesterol, Hypertension Respiratory History: Reports: Sleep Apnea Gastrointestinal History: Reports: Diverticulosis, GERD, PUD Other Gastrointestinal History: ulcers Genitourinary History: Reports: Urinary Incontinence, UTI, Recurrent INFORMATION ASSURANCE SPECIALIST History: Reports: Other (See Below) Other INFORMATION ASSURANCE SPECIALIST History: uterine cancer Musculoskeletal History: Reports: Arthritis, Back Pain, Chronic Other Musculoskeletal History: back arthritis Neurological History: Reports: CVA, Neuropathy, Diabetic, Other (See Below) Other Neuro History: left side weakness Psychiatric History: Reports: Anxiety Endocrine/Metabolic History: Reports: Diabetes, Type II, Obesity/BMI 30+ Hematologic History: Reports: Anticoagulation Therapy Oncologic (Cancer) History: Reports: Uterine Dermatologic History: Reports: Eczema - Infectious Disease History Infectious Disease History: Reports: C-Difficile, Chicken Pox, Measles, MRSA, Mumps, Shingles, Other (See Below) Other Infectious Disease History: MRSA in nasal swab - Past Surgical History HEENT Surgical History: Reports: Cataract Surgery Cardiovascular Surgical History: Reports: Aneurysm, Coronary Artery Bypass, Coronary Artery Stent Other Cardiovascular Surgeries/Procedures: stent 10 years GI Surgical History: Reports: Cholecystectomy, Colonoscopy, EGD Female Surgical History: Reports: Hysterectomy, Salpingo-Oophorectomy Oncologic Surgical History: Reports: Other (See Below) Other Oncologic Surgeries/Procedures: hyst Social & Family History - Caffeine Use Caffeine Use: Reports: Coffee, Tea ED ROS GENERAL - Review of Systems Review Of Systems: Unable To Obtain Reason Not Obtained: Encephalopathy ED EXAM, NEURO - Physical Exam Exam: See Below Exam Limited By: Altered Mental Status General Appearance: Alert, No Apparent Distress Ears: Normal External Exam Nose: Normal Inspection Throat/Mouth: Normal Inspection Head Exam: Atraumatic, Normocephalic Neck: Normal Inspection Respiratory/Chest: Lungs Clear Cardiovascular: Regular Rate, Rhythm GI/Abdominal: Soft, Non-Tender Neurological: Alert, Other (Oriented to place and person. Subtle right facial droop noted. Speaking nonsensically, intermittently able to answer questions. No pronator drift. No drift of the extremities. Neurologic exam is limited by altered mental status. NIHSS 3.) #1 Interpretation Rhythm: Other (Narrow complex regular rhythm, interpretation limited by artifact, suspect normal sinus rhythm with a rate 87) Course - Vital Signs Last Recorded V/S: Last Vital Signs Temp 36.8 C 01/17/21 10:52 Pulse 89 01/17/21 14:05 Resp 11 L 01/17/21 14:05 BP 202/101 H 01/17/21 14:05 Pulse Ox 97 01/17/21 14:05 - Orders/Labs/Meds Orders: Active Orders 24 hr Category Date Time Status EKG Documentation Completion [RC] ASDIRECTED Care 01/17/21 10:52 Active EKG 12 Lead [EK] Routine Ther 01/17/21 10:52 Ordered Labs: Laboratory Tests 01/17/21 01/17/21 01/17/21 Range/Units 10:56 11:01 11:01 WBC 7.1 (4.5-11.0) K/uL RBC 4.33 (3.30-5.50) M/uL Hgb 13.2 (12.0-15.0) g/dL Hct 39.0 (36.0-48.0) % MCV 90 (80-98) fL MCH 31 (27-31) pg MCHC 34 (32-36) % Plt Count 153 (150-400) K/uL Sodium 144 (140-148) mmol/L Potassium 3.8 (3.6-5.2) mmol/L Chloride 108 (100-108) mmol/L Carbon Dioxide 24 (21-32) mmol/L Anion Gap 11.7 (5.0-14.0) mmol/L BUN 20 H (7-18) mg/dL Creatinine 1.2 H (0.6-1.0) mg/dL Est Cr Clr Drug Dosing 28.34 mL/min Estimated GFR (MDRD) 43 L (>60) BUN/Creatinine Ratio Not Reportable Glucose 181 H (74-106) mg/dL POC Glucose 168 H (74-106) mg/dL Calcium 9.4 (8.5-10.1) mg/dL Total Bilirubin 0.8 D (0.2-1.0) mg/dL AST 37 (15-37) U/L ALT 60 (12-78) U/L Alkaline Phosphatase 72 (46-116) U/L Total Protein 6.5 (6.4-8.2) g/dL Albumin 3.9 (3.4-5.0) g/dL Globulin 2.6 (2.3-3.5) g/dL Albumin/Globulin Ratio 1.5 (1.2-2.2) Meds: Medications Discontinued Medications Generic Name Dose Route Start Last Admin Trade Name Dee PRN Reason Stop Dose Admin Haloperidol Lactate 5 mg 01/17/21 12:01 01/17/21 12:46 Haloperidol Lactate 5 Mg/Ml Sdv IVPUSH 01/17/21 12:02 5 mg ONETIME ONE Administration Sodium Chloride 100 mls @ 3.5 mls/sec 01/17/21 11:00 01/17/21 11:33 Normal Saline IV 01/17/21 11:01 4 mls/sec ASDIRECTED JUDIE Administration Ceftriaxone Sodium 2 gm/ 50 mls @ 100 mls/hr 01/17/21 12:45 01/17/21 12:49 Sodium Chloride IV 01/17/21 13:14 100 mls/hr ONETIME ONE Administration Sodium Chloride 1,000 mls @ 999 mls/hr 01/17/21 12:46 01/17/21 12:50 Normal Saline IV 01/17/21 13:46 999 mls/hr .BOLUS ONE Administration Iopamidol 100 ml 01/17/21 11:00 01/17/21 11:33 Iopamidol 755 Mg/Ml 100 Ml Bottle IV 01/17/21 11:01 100 ml . DIRECTED JUDIE Administration Lorazepam 0.5 mg 01/17/21 14:09 01/17/21 14:58 Lorazepam 2 Mg/Ml Sdv IVPUSH 01/17/21 14:10 0.5 mg ONETIME ONE Administration Sodium Chloride 10 ml 01/17/21 10:58 01/17/21 11:33 Sodium Chloride 0.9% 10 Ml Syringe FLUSH 01/17/21 10:59 10 ml ONETIME ONE Administration Sodium Chloride 1,000 ml 01/17/21 12:15 Sodium Chloride 0.9% 10 Ml Sdv IV 01/17/21 12:16 ONETIME ONE Sodium Chloride 999 ml 01/17/21 12:45 Sodium Chloride 0.9% 10 Ml Sdv IV 01/17/21 12:46 ONETIME ONE - Re-Assessments/Exams Free Text/Narrative Re-Assessment/Exam: 80 yo presents to the ED with family for concerns of confusion, possible stroke. On exam found to hypertensive - SBP 170s. Neuro exam with with mild right nasolabial fold flattening as well as apparent receptive and expressive aphasia. Her NIH stroke scale is 3. Stat CTA and CT of the head and neck were obtained. These showed evidence of a prior infarct in the right temporoparietal lobe, does not correlate with her symptoms today. CTA shows diffuse disease of the vasculature of her head neck. She is not in A. fib on EKG. Blood work otherwise unremarkable. She continued to have escalating delirium while in ED, treated with Haldol as well as a small dose of lorazepam as she was becoming unsafe and crawling out of bed. I had concerns of perhaps she was undertreated for her recent UTI given her i nability to be compliant with her home Keflex, therefore dosed her with 2 g of IV ceftriaxone. I reviewed her case with the on-call neurologist at [facility] in [place]. They agree with our concerns for stroke. She is not a TPA candidate and there is no lesion on her CTA amendable to mechanical thrombectomy. My primary concern remains that perhaps she had a CVA, although this could be septic encephalopathy and delirium from her urinary infection. Regardless, she needs further stroke work-up. Our plan is to transfer her to [place] for further work-up 01/17/21 15:50 Departure - Departure Time of Disposition: 17:00 Disposition: DC/Tfer to Acute Hospital 02 Clinical Impression: Delirium Stroke Qualifiers: CVA mechanism: other Qualified Code(s): I63.89 - Other cerebral infarction - Discharge Information *PRESCRIPTION DRUG MONITORING PROGRAM REVIEWED*: No *COPY OF PRESCRIPTION DRUG MONITORING REPORT IN PATIENT SERVANDO: No Referrals: PCP,None [Primary Care Provider] - Forms: ED Department Discharge Sepsis Event Note (ED) - Focused Exam Vital Signs: Vital Signs Temp Pulse Resp BP Pulse Ox 01/17/21 14:05 89 11 L 202/101 H 97 01/17/21 12:35 79 11 L 184/73 H 96 01/17/21 12:34 80 12 184/73 H 95 01/17/21 11:31 83 22 H 193/124 H 99 01/17/21 10:52 36.8 C 80 14 198/76 H 98 01/17/21 10:40 36.8 C 80 14 198/76 H 98 - My Orders Last 24 Hours: My Active Orders 01/17/21 10:52 EKG Documentation Completion [RC] ASDIRECTED EKG 12 Lead [EK] Routine - Assessment/Plan Last 24 Hours: My Active Orders 01/17/21 10:52 EKG Documentation Completion [RC] ASDIRECTED EKG 12 Lead [EK] Routine
--- NOTE | 2021-01-17 11:18 | CT ---
Head wo Cont CLINICAL HISTORY: Facial true, difficult speech COMPARISON: None TECHNIQUE: Transverse scans were obtained from the base of the skull through the vertex without IV contrast on a multislice, multidetector CT scanner. Auto dosage reduction and iterative reconstruction techniques employed. FINDINGS: There is an ill-defined low-attenuation area in the right parietal lobe. There is no mass effect, hemorrhage, or extraaxial collection. There is some periventricular and subcortical lucency The basal cisterns and sulci over the convexities are prominent. The ventricles are normal for age. IMPRESSION: Approximately 1 cm hypodensity in the right temporoparietal lobe is felt to represent a subacute focus of ischemic infarct No mass effect or hemorrhage Chronic ischemic microvascular changes Age-related atrophy
[2021-01-17] MEDS: Sodium Chloride 0.9% 10 ML Syringe FLUSH ONE ×2 (11:29→11:33)
[2021-01-17] MEDS ORDERED: Haloperidol Lactate 5 MG/ML SDV IVPUSH ONE (12:01)
[2021-01-17] MEDS ORDERED: cefTRIAXone 2 GM in Sodium Chloride 0.9% 50 ML IV ONE ×2 (12:06→12:45)
[2021-01-17] MEDS ORDERED: Sodium Chloride 0.9% 10 ML SDV IV ONE ×2 (12:15→12:45)
--- NOTE | 2021-01-17 12:20 | CT ---
Ang Neck CLINICAL HISTORY: Facial droop, difficult speech TECHNIQUE: Multiple axial images were obtained through the neck without and with the IV infusion of iodinated contrast. From these images sagittal, coronal, and 3D reconstructions of the aortic arch and carotids were obtained and viewed on a dedicated and independent workstation. NASCET criteria is used. Auto dosage reduction and iterative reconstruction techniques employed. FINDINGS: There is calcified plaque in the aortic arch. Dominant artery is free of significant stenosis. There is some calcified plaque at the origin of the right subclavian artery. Right vertebral artery is patent. There may be some mild stenosis at its origin. There is calcified plaque at the origin of the left common carotid artery. There is moderate calcified plaque at the origin of the left subclavian artery with moderate stenosis. The left vertebral artery is tortuous but patent. There is mild stenosis at its origin. There is significant hard plaque in the right carotid bifurcation. Stenosis is less than 50% There is moderate hard plaque in the left carotid bifurcation. Stenosis is less than 50%. IMPRESSION: Diffuse atheromatous plaque in the aortic arch and brachiocephalic vessels Left subclavian artery origin stenosis of approximately 60% Mild stenoses are seen in the origins of both vertebral arteries There is moderate plaque in both carotid bifurcations with ICA stenosis less than 50% bilaterally
--- NOTE | 2021-01-17 12:34 | CT ---
Ang Head CLINICAL HISTORY: CVA. COMPARISON: None TECHNIQUE: Multiple volume rendered and MIP 3D reconstructions were generated from source images obtained on a spiral scanner before and after intravenous iodinated contrast enhancement Auto dosage reduction and iterative reconstruction techniques employed. FINDINGS: Internal carotid arteries: There is moderate to severe plaque in both carotid siphons right greater than left. There is moderate stenosis bilaterally slightly greater on the right. Anterior cerebral arteries: There is a small A1 segment on the right with some focal stenosis at its midportion. Middle cerebral arteries: There is only filling of the right anterior branch of the middle cerebral artery distal distribution. There is diminished flow to the more distal distribution of the right MCA compared to the left Posterior cerebral arteries: The right posterior cerebral artery is fed off the right internal carotid artery Vertebral/basilar arteries: There is some plaque in the distal portion of the right vertebral artery causing [id number] stenosis. Basilar artery has a normal course and contour. It feeds the left posterior cerebral artery distribution. IMPRESSION: Significant calcified plaque in the carotid siphons bilaterally with multiple segmental stenoses Significantly diminished flow in the right the middle cerebral artery distribution with the middle and posterior branches being absent or very atretic Persistent circulation on the right Stenosis of the right vertebral artery at the foramen magnum.
[2021-01-17] MEDS ORDERED: Sodium Chloride 0.9% 1,000 ML IV ONE (12:46)
--- NOTE | 2021-01-17 13:03 | CT ---
Abdomen Pelvis wo Cont CLINICAL HISTORY: Abdominal pain COMPARISON: Abdominal pain. TECHNIQUE: Axial tomographic images are obtained from the dome of the diaphragm to the pubic symphysis without IV contrast enhancement. No oral contrast was used. The dosage reduction and iterative reconstruction techniques employed. FINDINGS: The lung bases show moderate breathing motion. There is some streaky atelectasis and scarring.. The liver shows no mass or biliary dilatation. The gallbladder has been removed. The spleen has a normal size and shape. 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 The pancreas is free of mass or inflammatory change. The adrenal glands appear normal bilaterally. There is some some right kidney pelvocaliectasis. There is fullness of the right ureter along its length to the bladder. There is a right-sided ureterocele. No stone is seen. The left kidney is atrophic. There may have been partial resection. A 1.3 cm cyst off the upper pole. There is no hydronephrosis. The left ureter has a normal course and contour to the bladder. No definite ureterocele is seen on the left. The aorta shows moderate atheromatous change. There is moderate plaque in the origin of the celiac trunk without significant stenosis. There is moderate plaque in the proximal SMA with mild to moderate stenosis. There is no suspicious retroperitoneal adenopathy. Small intestinal configuration is nonacute. There is moderate diffuse diverticulosis. IMPRESSION: Previous cholecystectomy Moderate diverticulosis without evidence of diverticulitis Right ureterocele with mild fullness of the pelvicalyceal system and ureter. This may be from chronic low-grade obstruction. No stones are seen Atrophic changes left kidney with possible previous partial resection Moderate to severe atheromatous plaque in the aorta and visceral vessels with SMA stenosis. Some bilateral renal artery stenosis is also suggested. 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
[2021-01-17] MEDS ORDERED: LORazepam 2 MG/ML SDV IVPUSH ONE (14:09)
[2021-01-17 18:08] VITALS: BP 201/71; PULSE 89
== END 2021-01-17 16:49 ==
LOC: JP.ED 10:34
DX: I63.9 Cerebral infarction, unspecified (principal); I25.10 Atherosclerotic heart disease of native coronary artery without angina pectoris; E78.00 Pure hypercholesterolemia, unspecified; I10 Essential (primary) hypertension; K21.9 Gastro-esophageal reflux disease without esophagitis; E11.9 Type 2 diabetes mellitus without complications; E66.9 Obesity, unspecified; Z79.84 Long term (current) use of oral hypoglycemic drugs; Z79.82 Long term (current) use of aspirin; Z68.41 Body mass index [BMI] 40.0-44.9, adult; Z88.2 Allergy status to sulfonamides; Z88.6 Allergy status to analgesic agent; Z88.8 Allergy status to other drugs, medicaments and biological substances
CPT/HCPCS: 36415; 70450; 70496; 70498; 74176; 80053; 82947; 85027; 93005; 96365; 96375; 99285; J0696; J1630; J2060; J7030; Q9967

== ENCOUNTER 2021-11-27 22:23 | Emergency (ER) | payer MEDICARE, MEDICAID ==
[2021-11-27 22:50] VITALS: BP 179/77; PULSE 87
[2021-11-27] MEDS ORDERED: Aspirin 81 MG Tab.Chew PO ONE (22:54)
[2021-11-27 23:29] LABS: TROPONIN I HIGH SENSITIVITY 14.7 pg/mL (<=60.3)
== END 2021-11-27 23:49 | disposition home or self-care (01) ==
LOC: JP.ED 22:23
DX: M79.602 Pain in left arm (principal); K21.9 Gastro-esophageal reflux disease without esophagitis; I25.10 Atherosclerotic heart disease of native coronary artery without angina pectoris; E78.00 Pure hypercholesterolemia, unspecified; I10 Essential (primary) hypertension; E11.40 Type 2 diabetes mellitus with diabetic neuropathy, unspecified; E66.9 Obesity, unspecified; Z68.39 Body mass index [BMI] 39.0-39.9, adult; Z95.1 Presence of aortocoronary bypass graft; Z88.5 Allergy status to narcotic agent; Z88.1 Allergy status to other antibiotic agents; Z88.2 Allergy status to sulfonamides; Z79.82 Long term (current) use of aspirin; Z79.84 Long term (current) use of oral hypoglycemic drugs; Z79.899 Other long term (current) drug therapy; Z86.73 Personal history of transient ischemic attack (TIA), and cerebral infarction without residual deficits
CPT/HCPCS: 36415; 80048; 84484; 85025; 93005; 93010; 99282; 99283-25; A9270-GY

== ENCOUNTER 2022-03-07 14:27 | Emergency (ER) | payer MEDICARE, MEDICAID ==
[2022-03-07 15:04] VITALS: BP 185/82; PULSE 84
== END 2022-03-07 17:07 | disposition home or self-care (01) ==
LOC: JP.ED 14:27
DX: K57.92 Diverticulitis of intestine, part unspecified, without perforation or abscess without bleeding (principal); I25.10 Atherosclerotic heart disease of native coronary artery without angina pectoris; E78.00 Pure hypercholesterolemia, unspecified; I10 Essential (primary) hypertension; K21.9 Gastro-esophageal reflux disease without esophagitis; E11.40 Type 2 diabetes mellitus with diabetic neuropathy, unspecified; E66.9 Obesity, unspecified; Z68.39 Body mass index [BMI] 39.0-39.9, adult; Z88.5 Allergy status to narcotic agent; Z88.1 Allergy status to other antibiotic agents; Z88.2 Allergy status to sulfonamides; Z79.82 Long term (current) use of aspirin; Z79.899 Other long term (current) drug therapy; Z79.84 Long term (current) use of oral hypoglycemic drugs
CPT/HCPCS: 36415; 74176; 80048; 85025; 99284

== ENCOUNTER 2022-03-11 23:09 | Emergency (ER) | payer MEDICARE, MEDICAID ==
[2022-03-11 23:36] VITALS: BP 154/65; PULSE 80
== END 2022-03-12 02:07 | disposition home or self-care (01) ==
LOC: JP.ED 23:09
DX: K92.1 Melena (principal); I25.10 Atherosclerotic heart disease of native coronary artery without angina pectoris; K21.9 Gastro-esophageal reflux disease without esophagitis; E11.40 Type 2 diabetes mellitus with diabetic neuropathy, unspecified; I10 Essential (primary) hypertension; E66.9 Obesity, unspecified; Z68.37 Body mass index [BMI] 37.0-37.9, adult; Z88.6 Allergy status to analgesic agent; Z88.1 Allergy status to other antibiotic agents; Z88.2 Allergy status to sulfonamides; Z79.899 Other long term (current) drug therapy; Z79.82 Long term (current) use of aspirin; Z79.84 Long term (current) use of oral hypoglycemic drugs; Z90.49 Acquired absence of other specified parts of digestive tract; Z90.710 Acquired absence of both cervix and uterus
CPT/HCPCS: 36415; 74018; 74018-26; 80048; 83605; 85025; 99283